=== PATIENT | male | born 1995 | race Caucasian/White ===

== ENCOUNTER 2016-11-26 13:06 | Emergency (ER) | payer MEDICAID ==
[~2016-11-26] VITALS: Ht 160 cm; Wt 63.6 kg
[2016-11-26] MEDS ORDERED: DSS100 PO (14:03)
[2016-11-26] MEDS ORDERED: ENOX40DI9 SQ (14:03)
[2016-11-26] MEDS ORDERED: HYDR-309 GT (14:03)
[2016-11-26] MEDS ORDERED: BISA10S PR (14:03)
[2016-11-26] MEDS ORDERED: AMOX100S6 GT (14:03)
[2016-11-26] MEDS ORDERED: GABA-529 PO (14:03)
[2016-11-26] MEDS ORDERED: FAMO20 PO (14:03)
[2016-11-26] MEDS ORDERED: SULF1TAB41 GT (14:03)
[2016-11-26] MEDS ORDERED: LACT1CAP70 GT (14:03)
[2016-11-26 14:05] VITALS: BP 114/71
[2016-11-26] MEDS ORDERED: LIDOCAINE HCL 1% 10 ML VIAL INJ ONE (14:30)
[2016-11-26] MEDS ORDERED: POVIDONE-IODINE 10% 120 ML SOLUTION TP ONE (15:07)
== END 2016-11-26 16:04 | disposition home or self-care (01) ==
LOC: EMS 13:09
DX: N47.2 Paraphimosis (principal)
CPT/HCPCS: 54450; 99284; J3490